=== PATIENT | female | born 1995 | race Caucasian/White ===

== ENCOUNTER 2020-12-28 22:05 | Emergency (ER) | payer BC, SELFPAY ==
[2020-12-28 22:07] VITALS: BP 130/78; PULSE 89; RESP 16; TEMP 36.8; O2SAT 97; BMI 19.5
--- NOTE | 2020-12-28 22:35 | HMH.EDEYEP ---
ED Disposition Clinical Impression: Eye dryness Clinical Impression: (Ruled Out): Corneal abrasion Disposition: Home, Self-Care Condition on Discharge: Good Additional Instructions: Please return to the emergency department if you feel worse in any way. Do not wear any contact lenses until your eye feels completely normal. Follow-up with your primary care physician if you do not feel better in the next few days. Referrals: Cam Chang MD [Primary Care Provider] - - Critical Care Critical Care Time: No Attestation: On 12/28/20, the high probability of a clinically significant, sudden or life threatening deterioration of the following system(s) required my full and direct attention, intervention and personal management. The time I documented below is in addition to time spent performing reported procedures but includes the following listed in this critical care notation. Medical Decision Making - Medical Records Medical records reviewed: Yes: I reviewed the patient's medical records. - Hossein Inquiry Pt receiving controlled substance: No Vital Signs: 12/28/20 22:07 Temperature 98.2 F Temperature Source Oral Pulse Rate [Left] 89 Respiratory Rate 16 Blood Pressure [Right Arm] 130/78 Blood Pressure Mean [Right Arm] 95 02 Sat by Pulse Oximetry 97 Oxygen Delivery Method Room Air Medical Decision Narrative: The patient presents to the emergency department complaining of a foreign body sensation in the right eye. Examination of the eye with fluorescein showed no evidence for foreign body and or abrasion. The patient can be safely discharged home in stable condition. Eye Problem HPI - General Chief complaint: Eye Problems Stated complaint: AO 12/28 FB in R Eye Time Seen by Provider: 12/28/20 22:36 Mode of Arrival: Ambulatory Limitations: No Limitations Description of Symptoms (Recalled from ER Triage Doc. by RN): pt reports to have had something in her right eye and thinks she may have gotten it out but her eye is sore and pt states she is afraid she scratched it - History of Present Illness HPI Narrative: The patient states that she had a foreign body sensation in her right eye. She rubbed the eye and felt scratching. She came to the emergency department to have the eye evaluated. She does wear contact lenses but has not worn any in several days. She was not wearing any contact lenses when she felt this foreign body sensation today. This happened approximately 1 hour prior to arrival. chief complaint: eye pain, foreign body - Related Data Home Medications Medication Instructions Recorded Confirmed bupropion HCl 150 mg 24 hr tablet, PO 90 Days #90 tab 04/27/18 02/13/19 extended release citalopram 20 mg tablet PO 90 Days #90 tab 04/27/18 02/13/19 ranitidine HCl 150 mg tablet PO 90 Days #90 tab 04/27/18 02/13/19 Previous Rx's Medication Instructions Recorded amoxicillin 500 mg capsule 500 mg PO Q12H 10 Days #20 cap 02/13/19 Allergies Allergy/AdvReac Type Severity Reaction Status Date / Time No Known Allergies Allergy Verified 02/13/19 17:53 [facility] History - Hepatitis A Screen Drug use history?: No High risk sexual behaviors?: No History of sexually transmitted infection?: No Currently employed?: No Childcare worker?: No Do you have indoor plumbing?: Yes Do you have electricity?: Yes Attestation statement:: This patient has been screened for Hepatitis A risk factors. I have reviewed the patient's past medical history: No Laterality Cases: Bilateral: Tonsillectomy - Social History Smoking Status: Never smoker Alcohol Intake: current Alcohol Intake Frequency:: holidays/special occasions only Occupational Status: employed Housing: house Household Members: family Family Hx:: No significant family history ROS Obtained: Yes All systems reviewed & no additional complaints Physical Exam - General General appearance: alert, in no apparent distress -
[2020-12-28 22:37] VITALS: BP 135/96; PULSE 88; RESP 14; TEMP 36.8; O2SAT 98
== END 2020-12-28 22:51 | disposition home or self-care (01) ==
PROVIDERS: Emergency Provider Emergency Medicine; PCP Family Medicine
DX: H04.121 Dry eye syndrome of right lacrimal gland (principal)
CPT/HCPCS: 99281

== ENCOUNTER → 2021-01-12 12:44 | Outpatient (CLI) | payer BC, SELFPAY | PROVIDERS: PCP Family Medicine; Visit Provider Nurse Practitioner | DX: Z20.822 Contact with and (suspected) exposure to COVID-19 (principal) | CPT/HCPCS: C9803; U0003; U0005 ==

== ENCOUNTER 2023-10-22 16:02 | Emergency (ER) | payer BC, SELFPAY ==
[2023-10-22 16:02] VITALS: BP 126/87; PULSE 81; RESP 18; TEMP 36.8; O2SAT 99; BMI 36.0
--- NOTE | 2023-10-22 16:03 | ECG_ITS ---
APPROVED REPORT Exam: Resting ECG HR:84 bpm ECG Measurements Heart Rate 84 AXES SC 133 P 49 QRSd 92 QRS 65 QT 382 T 71 QTc 424 Conclusion SINUS RHYTHM NORMAL ECG Electronically signed by : CELESTINE TABARES, 10/23/2023 15:10:38
--- NOTE | 2023-10-22 16:10 | HMH.EDGENADL ---
Discharge Plan Disposition Patient Disposition: Home, Self-Care Prescriptions Prescriptions: No Action amoxicillin 500 mg capsule 500 mg PO Q12H 10 Days Qty: 20 0RF citalopram 20 mg tablet PO 90 Days Qty: 90 ranitidine HCl 150 mg tablet PO 90 Days Qty: 90 bupropion HCl 150 mg tablet extended release 24 hr PO 90 Days Qty: 90 Activity Restrictions/Add. Instructions Additional Instructions/Restrictions: Call your family doctor to establish care for this visit to the emergency department and schedule follow-up within 48 hours to ensure improvement. If you have any worsening of your condition or any other concerning signs or symptoms, return to the emergency department or your primary care doctor for further evaluation. Pepcid twice daily for the next 2 weeks to help with symptoms. Clinical Impressions Clinical Impression: Acute epigastric pain Instructions Patient Instructions: DI for Acute Abdominal Pain Print Language Print Language: Algerian Discharge ED Provider: Tim Soto General Adult HPI General Chief complaint: Abdominal Pain Stated complaint: Epigastric, upper abd pain Time Seen by Provider: 10/22/23 16:06 History of Present Illness HPI narrative: Please note that above description of symptoms, in this electronic medical record under categorization of recalled from ER triage doctor by RN are reflective of an initial nursing assessment, however, is not reflective of my full history and physical exam that was personally taken and clarified. Consequentially, this preceding description of symptoms, which may include the patient's categorized chief complaint in the EMR, do not reflect my personal clinical impression, and the ultimate description of history of present illness and patient stated complaints should be deferred to this section of the note. Unless stated otherwise or congruent with this section of the note, additional signs, symptoms, or incongruence should be interpreted as inaccurate with my clinical impression. Related Data Home Medications ?Medication ?Instructions ?Recorded ?Confirmed bupropion HCl 150 mg 24 hr tablet, PO 90 days #90 tabs 04/27/18 02/13/19 extended release citalopram 20 mg tablet PO 90 days #90 tabs 04/27/18 02/13/19 ranitidine HCl 150 mg tablet PO 90 days #90 tabs 04/27/18 02/13/19 Previous Rx's ?Medication ?Instructions ?Recorded amoxicillin 500 mg capsule 500 mg PO Q12H sinus and otitis 02/13/19 media 10 days #20 caps Allergies Allergy/AdvReac Type Severity Reaction Status Date / Time No Known Allergies Allergy Verified 02/13/19 17:53 [facility] Disclaimer: The information contained in this section may have been updated after the patient was seen, as this information can be updated by other users. Social History Smoking Status: Never smoker alcohol intake: current alcohol intake frequency: holidays/special occasions only current occupational status: employed Travel in the last 8 weeks: None household members: family housing: house ROS Obtained: Yes All systems reviewed & no additional complaints except as documented Physical Exam General General appearance: alert, in no apparent distress and obese Head Head exam: atraumatic and normocephalic Eye Eye exam: Present normal appearance, PERRL and EOMI Neck Neck exam: Present normal inspection, full ROM and trachea midline Respiratory Respiratory exam: Present normal lung sounds bilaterally; Absent respiratory distress, wheezes, stridor, accessory muscle use or prolonged expiratory phase Cardiovascular Cardiovascular exam: Present regular rate, normal rhythm and other (Pulses equal symmetric in upper and lower extremities) Abdominal Exam Abdominal exam: Present soft and tenderness; Absent distention, guarding or pulsatile mass Abdominal tenderness: Present diffuse and mild Extremities Exam Extremities exam: Absent edema Back Exam Back exam: Absen
[2023-10-22 16:21] LABS: Basophils # 0.1 K/mm3 (0-0.2); Eosinophils # 0.3 K/mm3 (0.0-0.4); Eosinophils % 2.6 % (0.1-12.0); Hematocrit 40.9 % (37.0-47.0); Hemoglobin 13.1 g/dL (12.2-16.2); Lymphocytes % 24.3 % (10-50); Mean Corpuscular HGB Conc 32.1 g/dL (31.8-35.4); Mean Corpuscular Hemoglobin 27.3 pg (27.0-31.2); Mean Corpuscular Volume 85.1 fl (81-99); Mean Platelet Volume 6.8 fl (7.4-10.4); Monocytes # 0.8 K/mm3 (0.1-1.0); Monocytes % 6.1 % (1.7-9.3); Neutrophils # 8.2 K/mm3 (1.8-7.8); Platelet Count 501 K/mm3 (142-424); Red Blood Count 4.81 M/mm3 (4.20-5.40); Red Cell Distribution Width 15.7 % (11.5-17.5); White Blood Count 12.4 K/mm3 (4.8-10.8)
[2023-10-22 16:24] LABS: Albumin Level 4.4 g/dl (3.5-5.0); Chloride 104 mmol/L (98-107)
[2023-10-22 16:25] LABS: Sodium 139 mmol/L (136-145)
[2023-10-22 16:26] LABS: Lipase 108 U/L (23-300)
[2023-10-22 16:27] LABS: Blood Urea Nitrogen 8 mg/dl (7-17); Creatinine Clearance Estimated 230 mL/min (50-200); Estimated Glomerular Filt Rate 119 ml/min (>60); GFR (African American) 144 ML/MIN (>60); Magnesium 2.1 mg/dl (1.6-2.3)
[2023-10-22 16:28] LABS: Alanine Aminotransferase 47 U/L (12-78); Albumin/Globulin Ratio 1.5 (1.1-1.8); Alkaline Phosphatase 74 U/L (38-126); Aspartate Amino Transferase 47 U/L (14-36); Bilirubin,Total 0.5 mg/dl (0.2-1.3); Calcium 9.5 mg/dl (8.4-10.2); Carbon Dioxide 27 mmol/L (22.0-30.0); Glucose 89 mg/dl (74-100); INR 0.91 (0.9-1.1); Prothrombin Time 10.3 seconds (10.1-12.5); Total Protein,Serum 7.4 g/dl (6.3-8.2)
[2023-10-22 16:34] LABS: Activated Partial Thrombo Time 27.6 seconds (22.8-30.6)
[2023-10-22 16:36] LABS: NT Pro Brain Natriuretic Pep. 27.1 pg/mL (0-125)
[2023-10-22 16:41] LABS: Troponin I < 0.01 ng/ml (0.00-0.034)
[2023-10-22 16:48] LABS: HCG,Quantitative < 2 mIU/ml (0-5.42)
--- NOTE | 2023-10-22 16:48 | PC.NURSE ---
pt TO THE BATHROOM STANDBY ASSIST.
[2023-10-22 16:58] LABS: Microscopic, Urine URINE MICROSCOPIC (MICROSCOPIC)
[2023-10-22 16:59] LABS: Appearance,Urine CLEAR (Clear); Bilirubin,Urine Negative (Negative); Blood, Urine Negative (Negative); Color,Urine YELLOW (Yellow); Glucose,Urine (UA) Negative (Negative); Ketones,Urine Negative (Negative); Leukocyte Esterase,Urine 1+ (Negative); Nitrate,Urine Negative (Negative); PH,Urine 7.5 (5.0-8.5); Protein,Urine TRACE (Negative); Urobilinogen,Urine 0.2 EU/dl (0.2)
[2023-10-22 17:00] VITALS: BP 148/95; PULSE 81; O2SAT 97
[2023-10-22 17:13] LABS: Bacteria,Urine Trace /lpf; Sperm,Urine 2+ /lpf
[2023-10-22 17:30] VITALS: BP 134/84; PULSE 81; O2SAT 98
[2023-10-22 18:07] VITALS: BP 120/84; PULSE 70; RESP 17; TEMP 36.8; O2SAT 98
== END 2023-10-22 18:09 | disposition home or self-care (01) ==
PROVIDERS: Emergency Provider Emergency Medicine; PCP Family Medicine
DX: R10.13 Epigastric pain (principal); D72.829 Elevated white blood cell count, unspecified; R11.0 Nausea
CPT/HCPCS: 80053; 81001; 83605; 83690; 83735; 83880; 84484; 84702; 85025; 85610; 85730; 87086; 93005; 96374; 96375; 99285; J0131; J1885; S0028